=== PATIENT | female | born 1995 | race Caucasian/White ===

== ENCOUNTER 2017-10-26 15:47 | Emergency (ER) | payer OTHER ==
[~2017-10-26] VITALS: Ht 162.6 cm; Wt 45.4 kg
== END 2017-10-26 17:05 | disposition home or self-care (01) ==
LOC: ER 15:47
DX: H00.035 Abscess of left lower eyelid (principal); H01.005 Unspecified blepharitis left lower eyelid; H01.004 Unspecified blepharitis left upper eyelid